=== PATIENT | female | born 1950 | race Caucasian/White ===

== ENCOUNTER 2020-10-23 12:09 | Emergency (ER) | payer MEDICARE, OTHER ==
[2020-10-23 13:42] LABS: BASOPHIL 0.5 % (0-2); EOSINOPHIL 1.1 % (0-7); HCT 42.6 % (37.0-47.0); HGB 14.4 g/dl (12.5-16.0); LYMPHOCYTE 31.9 % (15-48); MCH 31.6 pg (25.0-31.0); MCHC 33.8 g/dL (32.0-36.0); MCV 93.4 fL (78.0-100.0); MONOCYTE 6.4 % (0-12); MPV 8.3 fL (6.0-9.5); NEUTROPHIL 59.6 % (41-80); NRBC 0; PLT 302 K/uL (150-400); RBC 4.56 M/uL (4.20-5.40); RDW 13.1 % (11.5-14.0); WBC 7.4 K/uL (4.0-10.5)
[2020-10-23 13:53] LABS: INR 0.93 (0.9-1.2); PROTHROMBIN TIME 11.8 SECONDS (11.4-13.6)
[2020-10-23 13:54] LABS: PTT 25.8 SECONDS (22.2-34.7)
[2020-10-23 13:55] LABS: D-DIMER 0.27 ug/mLFEU (0.00-0.41)
[2020-10-23 14:00] LABS: ALBUMIN 3.8 g/dL (3.4-5.0); BILIRUBIN - TOTAL 0.4 mg/dL (0.2-1.0); BUN/CREAT RATIO (CALC) 15.3 RATIO; CREATININE 0.72 mg/dL (0.51-0.95); GLOBULIN (CALCULATION) 3.3 g/dL; POTASSIUM 4.4 mmol/L (3.5-5.1); TOTAL PROTEIN 7.1 g/dL (6.4-8.2)
[2020-10-23] MEDS ORDERED: NORCO 5-325 TA1 EACH PO (16:36)
[2020-10-23] MEDS ORDERED: PREDNISONE 20MG20 MG PO (16:36)
== END 2020-10-23 16:54 | disposition home or self-care (01) ==
LOC: FER 12:09
PROVIDERS: Emergency Medicine
DX: M51.16 Intervertebral disc disorders with radiculopathy, lumbar region (principal); E78.00 Pure hypercholesterolemia, unspecified; Z79.899 Other long term (current) drug therapy; Z79.82 Long term (current) use of aspirin
CPT/HCPCS: 36415; 72131; 80053; 82550; 85025; 85379; 85610; 85730; Q9967